=== PATIENT | male | born 1960 | race African-American/Black ===

== ENCOUNTER 2018-06-17 12:28 | Emergency (ER) | payer MEDICAID, OTHER ==
[~2018-06-17] VITALS: Ht 185.4 cm; Wt 97.0 kg
[~2018-06-17 12:28] MED LIST: ACET500C5 PO; ALP2OP10 BOTH EYES; COSO10 BOTH EYES; CYCL10TA7 PO; IBUP-1542 PO; OSEL75CA23 PO
[2018-06-17 12:32] VITALS: Ht 185.4 cm; Wt 97.0 kg
[2018-06-17] MEDS ORDERED: ONDANSETRON 4 MG INJ IV STA (13:20)
[2018-06-17] MEDS ORDERED: SOD CHLORIDE 0.9% 1,000 ML IV STA (13:20)
[2018-06-17] MEDS ORDERED: morphine 4 MG/ML VIAL IV STA (13:20)
[2018-06-17 14:30] VITALS: BP 118/69; PULSE 110; RESP 18
--- NOTE | 2018-06-17 14:54 | ERD ---
ER Documentation Chief Complaint Chief Complaint abdominal pain , nausea , headache x 1 week HPI 58-year-old male with no past medical history presenting with complaints of lower abdominal pain intermittently for about 1 week. The pain is described as aching, pressure pain, worse with standing. He denies any associated dysuria or hematuria. No constipation or diarrhea. He thought he had constipation and was taking medications for this but this did not help relieve the pain. He had one episode of vomiting today that was nonbloody and nonbilious. He denies fevers or chills. ROS All systems reviewed and are negative except as per history of present illness. Medications Home Meds Active Scripts Cyclobenzaprine Hcl* (Cyclobenzaprine Hcl*) 10 Mg Tablet, 10 MG PO TID, #15 TAB Prov:ADDIE HENSON PA-C 05/13/16 Ibuprofen* (Motrin*) 600 Mg Tab, 600 MG PO Q6, #30 TAB Prov:ADDIE HENSON PA-C 05/13/16 Acetaminophen* (Tylophen*) 500 Mg Capsule, 2 CAP PO Q8H PRN for PAIN AND OR ELEVATED TEMP, #20 CAP Prov:RANDA LEAVITT I. [employer] 08/05/15 Oseltamivir Phosphate* (Tamiflu*) 75 Mg Capsule, 75 MG PO BID for 5 Days, CAP Prov:RANDA LEAVITT [employer]. [employer] 08/05/15 Reported Medications Brimonidine Tartrate* (Alphagan*) 0.2%-10 Ml Opht Drops, 1 DROP BOTH EYES Q8, BOTTLE 07/29/14 Dorzolamide-Timolol* (Cosopt*) 2%-0.5% Soln, 1 DROP BOTH EYES BID, BOTTLE 07/29/14 Allergies Allergies: Coded Allergies: No Known Allergy (Unverified , 07/29/14) PMhx/Soc Medical and Surgical Hx: pt denies Medical Hx, pt denies Surgical Hx History of Surgery: No Anesthesia Reaction: No Hx Neurological Disorder: No Hx Respiratory Disorders: No Hx Cardiac Disorders: No Hx Psychiatric Problems: No Hx Miscellaneous Medical Probl: No Hx Alcohol Use: No Hx Substance Use: No Hx Tobacco Use: No Smoking Status: Never smoker FmHx Family History: No diabetes Physical Exam Vitals Vital Signs Date Temp Pulse Resp B/P (MAP) Pulse Ox O2 O2 Flow FiO2 Time Delivery Rate 1/13/19 96.8 110 18 118/69 98 Room Air 14:30 (85) 06/17/18 96.8 104 22 105/75 98 12:32 (85) Physical Exam Const: No acute distress, well-appearing, nontoxic mild suprapubic tenderness to deep palpation, no rebound or guarding, Head: Atraumatic Eyes: Normal Conjunctiva ENT: Normal External Ears, Nose and Mouth. Neck: Full range of motion. No meningismus. Resp: Clear to auscultation bilaterally Cardio: Regular rate and rhythm, no murmurs Abd: Soft, suprapubic tenderness to deep palpation without rebound or guarding. No masses. Non distended. Normal bowel sounds Rectal: No hemorrhoids, no blood in the rectal vault. Enlarged prostate palpated but nontender to palpation. Skin: No petechiae or rashes Back: No midline or flank tenderness Ext: No cyanosis, or edema Neur: Awake and alert Psych: Normal Mood and Affect Result Diagram: 06/17/18 1342 06/17/18 1342 Results 24 hrs Laboratory Tests Test 06/17/18 13:42 White Blood Count 12.2 10^3/ul Red Blood Count 5.06 10^6/ul Hemoglobin 15.3 g/dl Hematocrit 44.5 % Mean Corpuscular Volume 87.9 fl Mean Corpuscular Hemoglobin 30.2 pg Mean Corpuscular Hemoglobin Concent 34.4 g/dl Red Cell Distribution Width 12.3 % Platelet Count 196 10^3/UL Mean Platelet Volume 9.6 fl Immature Granulocytes % 0.700 % Neutrophils % 89.6 % Lymphocytes % 3.7 % Monocytes % 5.7 % Eosinophils % 0.0 % Basophils % 0.3 % Nucleated Red Blood Cells % 0.0 /100WBC Immature Granulocytes # 0.080 10^3/ul Neutrophils # 10.9 10^3/ul Lymphocytes # 0.5 10^3/ul Monocytes # 0.7 10^3/ul Eosinophils # 0.0 10^3/ul Basophils # 0.0 10^3/ul Nucleated Red Blood Cells # 0.0 10^3/ul Urine Color YELLOW Urine Clarity CLEAR Urine pH 5.0 Urine Specific [place] 1.016 Urine Ketones NEGATIVE mg/dL Urine Nitrite NEGATIVE mg/dL Urine Bilirubin NEGATIVE mg/dL Urine Urobilinogen NEGATIVE mg/dL Urine Leukocyte Esterase NEGATIVE Ugy/ul Urine Hemoglobin NEGATIVE mg/dL Urine Glucose NEGATIVE mg/dL Urine Total Protein NEGATIVE mg/dl Sodium Level 139 mmol/L Potassium Level 4.7 mmol/L Chloride Level 100 mmol/L Carbon Dioxide Level 30 mmol/L Anion Gap 9 Blood Urea Nitrogen 15 mg/dl Creatinine 1.07 mg/dl Est Glomerular Filtrat Rate mL/min > 60 mL/min Glucose Level 129 mg/dl Calcium Level 9.7 mg/dl Total Bilirubin 1.6 mg/dl Direct Bilirubin 0.00 mg/dl Indirect Bilirubin 1.6 mg/dl Aspartate Amino Transf (AST/SGOT) 24 IU/L Alanine Aminotransferase (ALT/SGPT) 25 IU/L Alkaline Phosphatase 58 IU/L Total Protein 8.3 g/dl Albumin 4.7 g/dl Globulin 3.60 g/dl Albumin/Globulin Ratio 1.30 Current Medications Medications Dose Sig/Alice Start Time Status Last (Trade) Ordered Route PRN Stop Time Admin Dose Reason Admin Sodium 1,000 ml @ Q1H STAT 06/17/18 DC 06/17/18 Chloride 1,000 mls/hr IV 13:20 14:00 06/17/18 14:19 Morphine 6 mg ONCE STAT 06/17/18 DC Sulfate IV 13:20 (morphine) 06/17/18 13:22 Ondansetron 4 mg ONCE STAT 06/17/18 DC 06/17/18 HCl (Zofran IV 13:20 14:00 Inj) 06/17/18 13:22 Procedures/MDM EMERGENT LABS AND DIAGNOSTIC STUDIES: Lab Results above were reviewed and interpreted by me. CBC: Mild leukocytosis, unclear etiology. No evidence of anemia or thrombocytosis CMP: No evidence of electrolyte abnormality, renal failure, hypoglycemia, liver failure, or biliary obstruction UA: no evidence of infection Radiology Results as interpreted by Radiology below were reviewed by Tootie Melvin MD: CT abdomen and pelvis without contrast: Enlarged prostate, no other acute abnormalities noted Initial Nursing notes reviewed. Previous Medical Records requested via the Electronic Health Record. EMERGENCY DEPARTMENT COURSE / MEDICAL DECISION MAKING: Patient is presenting with suprapubic abdominal pain that has worsened over the past 1 week. He has no other associated symptoms. His vitals were notable for mild tachycardia. Pain medications and IV fluids were given.CT scan was done to evaluate for possible diverticulitis versus colitis versus bowel obstruction and did not show any significant abnormalities other than prostate enlargement. Upon reevaluation, the patient states his pain has improved. Given his prostate enlargement on the CT scan, I did a rectal exam which revealed an enlarged prostate but no prostate tenderness. I doubt prostatitis. At this moment the etiology of the abdominal pain is unknown for certain. The patients vitals have been noted and are currently afebrile and hemodynamically stable. The workup, physical exam and observation period do not indicate a serious cause to the pain. The patients symptoms have improved while in the ED and the patient remains hemodynamically stable. Patient was able to tolerate PO. The current assessment has been explained to the patient including the fact that the etiology of the pain cannot be ruled out with certainty. Patient was advised that in the event this is early in the process of a more serious condition they may expect their symptoms to worsen and if so to return to the emergency department immediately. Patient was advised to follow up with primary care physician as soon as possible for re-evaluation within the next 1-2 days. All of the patients questions were answered. Patient verbalized understanding of plan and agrees. Advised to return to the ER for reevaluation within 12 hours if symptoms worsen. Patient's blood pressure was elevated (>120/80) but appears stable without evidence of hypertensive emergency or urgency. The patient was counseled about the risks of hypertension and urged to pursue outpatient monitoring and therapy within a week with their primary care physician. Departure Diagnosis: Primary Impression: Enlarged prostate Additional Impression: Abdominal pain Abdominal location: lower abdomen, unspecified Qualified Codes: R10.30 - Lower abdominal pain, unspecified Condition: Stable Patient Instructions: Abdominal Pain, Prostate Problems and Related Urinary Symptoms Additional Instructions: Follow-up with your primary care doctor as soon as possible to have an evaluation done on your prostate. If in the next 12 hours, your abdominal pain worsens or you develop a fever, return to the ER immediately. EVERARDO MELVIN MD Jun 17, 2018 14:54
== END 2018-06-17 15:34 | disposition home or self-care (01) ==
LOC: E/R 12:28
DX: N40.0 Benign prostatic hyperplasia without lower urinary tract symptoms (principal); R40.2142 Coma scale, eyes open, spontaneous, at arrival to emergency department; R40.2362 Coma scale, best motor response, obeys commands, at arrival to emergency department; R40.2252 Coma scale, best verbal response, oriented, at arrival to emergency department
CPT/HCPCS: 36415; 74176; 80053; 81003; 85025; 96374; J2270; J2405; J7030; Z7502